=== PATIENT | male | born 1980 ===

== ENCOUNTER 2021-03-19 07:52 | Emergency (ER) | payer SELFPAY ==
[~2021-03-19] VITALS: Ht 182.9 cm; Wt 84.8 kg
[2021-03-19 08:09] VITALS: BP 134/91
[2021-03-19] MEDS ORDERED: IBUP800T27 PO (08:51)
== END 2021-03-19 09:00 | disposition home or self-care (01) ==
LOC: ER 07:52
DX: S01.81XA Laceration without foreign body of other part of head, initial encounter (principal); M25.511 Pain in right shoulder; F17.210 Nicotine dependence, cigarettes, uncomplicated; F12.10 Cannabis abuse, uncomplicated; W54.0XXA Bitten by dog, initial encounter; Y93.89 Activity, other specified; Y92.89 Other specified places as the place of occurrence of the external cause; Y99.8 Other external cause status
CPT/HCPCS: 12013; 73030